=== PATIENT | male | born 1965 | race Two or more races ===

== ENCOUNTER 2020-07-06 15:24 | Emergency (ER) | payer OTHER ==
[~2020-07-06] VITALS: Ht 170.2 cm; Wt 74.5 kg
[2020-07-06 15:26] VITALS: BP 165/85
[2020-07-06] MEDS ORDERED: PROPARACAINE HCL 0.5% 15 ML OPHTHALMIC SOLUTION OU ONE (16:00)
== END 2020-07-06 17:03 | disposition home or self-care (01) ==
LOC: EMS 15:27
DX: T15.01XA Foreign body in cornea, right eye, initial encounter (principal); W22.8XXA Striking against or struck by other objects, initial encounter; Y93.89 Activity, other specified; Y92.89 Other specified places as the place of occurrence of the external cause; Y99.8 Other external cause status
CPT/HCPCS: 99283